=== PATIENT | male | born 1970 | race Caucasian/White ===

== ENCOUNTER 2020-08-04 11:29 | Emergency (ER) | payer OTHER ==
[2020-08-04 11:46] VITALS: BP 124/75; PULSE 73; TEMP 98; BMI 24.4
== END 2020-08-04 12:59 | disposition home or self-care (01) ==
LOC: JER 11:29
DX: U07.1 COVID-19 (principal)
CPT/HCPCS: 99281-25

== ENCOUNTER 2020-08-09 11:51 | Emergency (ER) | payer OTHER ==
[2020-08-09] MEDS ORDERED: CASIRIVIMAB (REGN10933) 1,200 MG, IMDEVIMAB (REGN10987) 1,200 MG in SODIUM CHLORIDE 250 ML IVPB ONE (11:58)
[2020-08-09 12:06] VITALS: BMI 24.1
[2020-08-09 12:54] LABS: BASO % 0.2 % (0-2.0); LYMPH % 7.9 % (8-40); MCHC 34.7 g/dl (32.0-35.9); MEAN CELL VOLUME 89.2 fl (80-96); MEAN PLT VOLUME 7.4 fl (7.5-11.1); NEUT % 84.9 % (42.8-82.8); PLATELET COUNT 169 K/MM3 (134-434); RBC 5.16 M/mm3 (4.00-5.60); RDW 12.8 % (11.9-15.9); WHITE BLOOD COUNT 7.8 K/mm3 (4.0-10.0)
[2020-08-09 13:18] LABS: POTASSIUM 4.4 mmol/L (3.5-5.1)
[2020-08-09 13:21] LABS: ALBUMIN 3.6 g/dl (3.4-5.0); BLOOD UREA NITROGEN 19.8 mg/dL (7-18); CALCIUM 9.8 mg/dL (8.5-10.1); MAGNESIUM 2.4 mg/dL (1.8-2.4)
[2020-08-09 13:24] LABS: CREATININE 1.1 mg/dL (0.55-1.3)
[2020-08-09 13:25] LABS: BILIRUBIN,TOTAL 0.7 mg/dL (0.2-1)
[2020-08-09 13:26] LABS: TOT PROT 7.6 g/dl (6.4-8.2)
[2020-08-09 15:12] VITALS: BP 114/65; PULSE 73; TEMP 98.4
== END 2020-08-09 16:05 | disposition home or self-care (01) ==
LOC: JCOVINFU 11:51
DX: U07.1 COVID-19 (principal)
CPT/HCPCS: 36415; 80053; 83735; 85025; 99284-25; M0243; Q0243